=== PATIENT | male | born 1990 | race Caucasian/White ===

== ENCOUNTER 2018-05-03 07:20 | Day surgery (SDC) | payer BC ==
[2018-05-02 11:41] VITALS: BMI 25.6
[2018-05-03 08:14] LABS: #Basophils 0.1 thou/uL (0.0-0.2); #Eosinphils 0.1 thou/uL (0.0-0.7); #Monocytes 0.6 thou/uL (0.11-0.59); #Neutrophils 2.8 thou/uL (1.40-6.50); %Basophils 1.9 % (0.0-1.0); %Eosinophils 2.6 % (0.0-10.0); %Lymphocytes 35.1 % (21.0-51.0); %Monocytes 11.2 % (0.0-10.0); %Neutrophils 49.2 % (42.0-75.0); Hemoglobin 15.4 g/dL (14.0-18.0); Mean Corpuscular HGB CONC 33.4 g/dL (32.0-36.0); Mean Corpuscular Hemoglobin 30.6 pg (27.0-31.0); Mean Corpuscular Volume 91.6 fl (80.0-94.0); Mean Platelet Volume 7.7 fL (7.4-10.4); Platelet Count 330 thou/uL (130-400); RBC Distribution Width 11.1 % (11.5-14.5); Red Blood Cell (RBC) Count 5.04 mill/uL (4.70-6.10); White Blood Cell (WBC) Count 5.7 thou/uL (4.8-10.8)
[2018-05-03] MEDS ORDERED: CEFAZOLIN/Water 2 GM/20 ML SYRINGE ONE (08:25)
[2018-05-03] MEDS ORDERED: Midazolam HCl 2 mg/2 ml Vial ONE ×2 (08:25→08:50)
[2018-05-03] MEDS ORDERED: Bupivacaine/Epinephrine 0.25% 30 ML VIAL ONE (08:49)
[2018-05-03] MEDS ORDERED: Fentanyl 100 MCG/2 ML VIAL ONE (08:50)
[2018-05-03] MEDS ORDERED: Promethazine HCl 25 MG/ML VIAL ONE (08:50)
--- NOTE | 2018-05-03 10:32 | OP ---
DATE OF PROCEDURE: 05/03/2018 PREOPERATIVE DIAGNOSIS: Right inguinal hernia. SURGEON: Socrates Centeno M.D. PROCEDURE PERFORMED: Right inguinal hernia repair with mesh. INDICATIONS: This is a 27-year-old male with a painful bulge in the right groin. FINDINGS: He had a moderate sized direct inguinal hernia. PROCEDURE: After informed consent was obtained, the patient was taken to the operating room and give n general mask anesthesia, placed in the supine position. The abdomen was prepped and draped in usua l fashion. Local anesthesia infiltrated subcutaneously and deep. A transverse right inguinal incisi on was performed. The subcu divided sharply. The fascia of the external oblique was incised in dire ction of its fibers through the external ring. Spermatic cord isolated with a Chandana drain. The cr emasteric fibers were . I did not find an indirect sac. The floor inspected. There was a moderate direct bulge. This was circumscribed and reduced. Reduction was maintained utilizing a PHS hernia system. Posterior layer placed in the preperitoneal space. Anterior was laid out, sutured t o the pubic tubercle with a 2-0 Prolene suture laterally, it was tucked under the external oblique fa scia. Hemostasis was assured. The cord placed anatomic. The external oblique fascia closed with a running 3-0 Vicryl. Rsahi's closed with interrupted 3-0 Vicryl and the skin closed with a running s ubcuticular 4-0 Rapide. Dermabond applied. The patient tolerated the procedure well and was transfe rred to recovery in good condition. Sponge and needle count verified correct x2.
[2018-05-03] MEDS ORDERED: Ondansetron HCl/PF 4 MG/2 ML Vial ONE (17:40)
[2018-05-03] MEDS ORDERED: Ketorolac Tromethamine 30 MG/ML VIAL ONE (17:40)
[2018-05-03] MEDS ORDERED: Dexamethasone 20 MG/5 ML VIAL ONE (17:40)
== END 2018-05-03 11:10 | disposition home or self-care (01) ==
LOC: SDC 07:20
PROVIDERS: ATTEND Surgery
PROC: 0YQ50ZZ Repair Right Inguinal Region, Open Approach (ICD-10-PCS; principal; 2018-05-03)
DX: K40.90 Unilateral inguinal hernia, without obstruction or gangrene, not specified as recurrent (principal)
CPT/HCPCS: 85025; C1781; J1100; J1885; J2250; J2405; J2550; J3010